=== PATIENT | male | born 1975 | race Caucasian/White ===

== ENCOUNTER 2018-04-20 11:36 | Emergency (ER) | payer OTHER, SELFPAY ==
[2018-04-20 11:47] VITALS: BP 128/68; PULSE 71; RESP 18; TEMP 36.9; O2SAT 100
--- NOTE | 2018-04-20 12:00 | DI.RAD.S_ITS ---
PROCEDURE: XR ELBOW RT MIN 3V INDICATIONS: fall off ladder TECHNIQUE: 3 views of the elbow were acquired. COMPARISON: None. FINDINGS: Bones: No displaced fractures or dislocations. No suspicious bony lesions. No significant degenerative changes are evident. Soft tissues: Evaluation for elbow joint effusion is inadequate on this examination related to suboptimal positioning of the patient's elbow. The overlying soft tissues are otherwise unremarkable. IMPRESSION: No displaced elbow fractures. Dictated by: Talha Yeager M.D. on 04/20/2018 at 11:53 Approved by: Talha Yeager M.D. on 04/20/2018 at 11:55
--- NOTE | 2018-04-20 12:00 | DI.RAD.S_ITS ---
PROCEDURE: XR PELVIS 1-2V INDICATIONS: fall off ladder TECHNIQUE: 1 view(s) of the pelvis acquired. COMPARISON: None. FINDINGS: Bones: No displaced fractures are identified involving the pelvis. Please note that only a single frontal view was obtained. No dislocations are evident. No suspicious osseous lesions are present. There mild degenerative changes of the left hip and bilateral sacroiliac joints. There also appear to be degenerative changes involving the lower lumbar spine. Soft tissues: Visualized bowel gas pattern is normal. No suspicious soft tissue calcifications. IMPRESSION: No displaced pelvic fractures are evident. If there is high clinical concern for an acute pelvic fracture, please consider CT for further evaluation. Dictated by: Talha Yeager M.D. on 04/20/2018 at 11:52 Approved by: Talha Yeager M.D. on 04/20/2018 at 11:53
--- NOTE | 2018-04-20 12:37 | DI.CT.S_ITS ---
PROCEDURE: CT HEAD/BRAIN WO CON INDICATIONS: fall off ladder TECHNIQUE: Noncontrast 4.5 mm thick angled axial sections acquired from the foramen magnum to the vertex, with coronal and sagittal reformats. For radiation dose reduction, the following was used: automated exposure control, adjustment of mA and/or kV according to patient size. COMPARISON: None. FINDINGS: Image quality: Excellent. CSF spaces: Basal cisterns are patent. No extra-axial fluid collections. Ventricles are normal in size and shape. Brain: No midline shift. No intracranial masses or hemorrhage. Malloy-white matter interface is normal. Skull and face: Calvarium and visualized facial bones are intact, without suspicious lesions. Sinuses: Visualized sinuses and mastoids are clear. IMPRESSION: Unremarkable head CT. No acute intracranial hemorrhage. Dictated by: Talha Yeager M.D. on 04/20/2018 at 11:43 Approved by: Talha Yeager M.D. on 04/20/2018 at 11:44
--- NOTE | 2018-04-20 12:37 | DI.CT.S_ITS ---
PROCEDURE: CT CERVICAL SPINE WO CON INDICATIONS: fall off ladder TECHNIQUE: Noncontrast 3 mm thick sections acquired from the skull base to the T4 level. Sagittal and coronal reformats were then constructed. For radiation dose reduction, the following was used: automated exposure control, adjustment of mA and/or kV according to patient size. COMPARISON: None. FINDINGS: Image quality: Diagnostic. Bones: The craniocervical and atlantoaxial joints are well-maintained. The odontoid is intact. The vertebral body heights and prevertebral soft tissues are within normal limits throughout the cervical spine without evidence to suggest acute compression fracture. No other fractures are evident within the cervical spine. The bone mineralization is within normal limits. No significant degenerative changes of the cervical spine are evident. Soft tissues: No prevertebral soft tissue swelling. Mild paraseptal emphysematous changes are noted within the right lung apex. No pneumothorax is evident. Imaged portions of the mediastinum are unremarkable. Otherwise, the remainder of the imaged soft tissues of the neck are within normal limits. IMPRESSION: 1. No acute fracture of the cervical spine. 2. Minimal right apical paraseptal emphysema. Dictated by: Talha Yeager M.D. on 04/20/2018 at 11:44 Approved by: Talha Yeager M.D. on 04/20/2018 at 11:47
--- NOTE | 2018-04-20 12:37 | PC.NURSE ---
Patient notes numbness to right 5th finger. Unable to extend thumb fully across palm of hand when compared to left side.
[2018-04-20 12:41] VITALS: BP 117/64; PULSE 61; RESP 14; O2SAT 99
--- NOTE | 2018-04-20 12:41 | ED_ITS ---
HPI - Fall General Chief Complaint: Trauma Stated Complaint: Fell off ladder Time Seen by Provider: 04/20/18 12:00 Source: patient Mode of arrival: ambulatory Limitations: no limitations History of Present Illness HPI Narrative: Patient is a 42-year-old male who presents after a 12 ft fall off a ladder. He said the latter was on a rug a when he fell. He mostly landed on his right side and buttock denies head injury or loss of consciousness. He has no nausea or vision changes. He is complaining mostly of right arm pain and elbow pain. He also has has some right buttock and hip pain. He has no knee pain no heel pain no back pain. He did not land on his feet mostly right buttock. A arm hit a table all while falling down words. Tetanus is up-to-date MD complaint: fall Related Data Home Medications Medication Instructions Recorded Confirmed No Known Home Medications 04/20/18 04/20/18 Allergies Allergy/AdvReac Type Severity Reaction Status Date / Time No Known Drug Allergies Allergy Verified 04/20/18 11:47 Review of Systems Review of Systems All systems reviewed & are unremarkable except as noted in HPI and below Constitutional Denies fever(s), Denies frequent falls, Denies headache(s) and Denies weakness Eyes Denies blurry vision and Denies diplopia ENT Ears, Nose, Mouth, and Throat: Denies vertigo, Denies dizziness, Denies headache (s) and Denies nasal trauma Cardiovascular Denies chest pain, Denies irregular heart rhythm, Denies lightheadedness, Denies palpitations, Denies dyspnea, Denies dyspnea on exertion and Denies orthopnea Respiratory Denies cough, Denies dyspnea, Denies dyspnea on exertion and Denies wheezing Gastrointestinal Gastrointestinal: Denies abdominal pain, Denies change in bowel habits, Denies diarrhea, Denies nausea and Denies vomiting Genitourinary Denies hematuria, Denies flank pain, Denies urinary incontinence and Denies urinary urgency Musculoskeletal Reports as per HPI, Denies back pain, Denies deformity, Denies muscle weakness, Denies numbness and Denies tingling Integumentary/Breasts Comments: Small abrasion right forearm Neurologic Denies vertigo, Denies dizziness, Denies frequent falls, Denies headache(s), Denies numbness, Denies tingling and Denies weakness Endocrine Denies palpitations Allergic/Immunologic Denies wheezing Exam Initial Vital Signs Initial Vital Signs: Vital Signs Temperature 98.5 F 04/20/18 11:47 Pulse Rate 71 04/20/18 11:47 Respiratory Rate 18 04/20/18 11:47 Blood Pressure 128/68 04/20/18 11:47 Pulse Oximetry 100 04/20/18 11:47 GENERAL: Well-appearing, well-nourished and in no acute distress. HEENT: Head normocephalic,, EOMI, pupils reactive, face symmetric, moist mucous membranes, no hemotympanum, no septal hematoma NECK: Supple, full range of motion, no step-offs, nontender on vertebrae, C- collar placed in ED CARDIOVASCULAR: Regular rate and rhythm without murmurs, rubs or gallops. RESPIRATORY: Breath sounds equal bilaterally, no wheezes rales or rhonchi. No crepitations, no subcutaneous air, chest is nontender, no signs of trauma ABDOMEN: Soft, nontender. Normoactive bowel sounds all 4 quadrants. No guarding or rebound. BACK: Nontender vertebrae, no step-offs, no contusions PELVIS: stable. EXTREMITIES: Normal range of motion, no clubbing or edema. The pelvis is stable though he does have tenderness right iliac crest. Contusion noted on right buttock. Right upper extremity: Painful supination pronation, abrasion noted on for arm no tenderness over the radial head able to flex and extend at elbow no shoulder or clavicle pain Left upper extremity: Within normal limits Right lower extremity: Within normal limits no right hip or knee pain is neurovascularly intact Left lower extremity:Within normal limits no hip pain no knee pain NEUROLOGICAL: Cranial nerves II through XII grossly intact. Normal gait and speech. SKIN: Warm, dry, no petechiae, no rashes or lesions, no contusions or ecchymosis PFSH Medical History Left rib fracture (Resolved) Social History Smoking Status: Former smoker alcohol intake: never substance use type: does not use Course Orders Ordered: ED Orders 04/20/18 12:00 XR elbow RT min 3V Stat XR pelvis 1-2V Stat 04/20/18 12:37 CT cervical spine wo con Stat CT head/brain wo con Stat Vital Signs - 8 hr 04/20/18 11:47 04/20/18 12:41 04/20/18 13:02 Temperature 98.5 F Pulse Rate 71 61 58 L Respiratory Rate 18 14 18 Blood Pressure 128/68 Blood Pressure [Right Arm] 117/64 105/61 Pulse Oximetry 100 99 100 MDM - Fall Imaging Data CT scan - head: Radiologist's impression: PROCEDURE: CT HEAD/BRAIN WO CON INDICATIONS: fall off ladder TECHNIQUE: Noncontrast 4.5 mm thick angled axial sections acquired from the foramen magnum to the vertex, with coronal and sagittal reformats. For radiation dose reduction, the following was used: automated exposure control, adjustment of mA and/or kV according to patient size. COMPARISON: None. FINDINGS: Image quality: Excellent. CSF spaces: Basal cisterns are patent. No extra-axial fluid collections. Ventricles are normal in size and shape. Brain: No midline shift. No intracranial masses or hemorrhage. Malloy-white matter interface is normal. Skull and face: Calvarium and visualized facial bones are intact, without suspicious lesions. Sinuses: Visualized sinuses and mastoids are clear. IMPRESSION: Unremarkable head CT. No acute intracranial hemorrhage. Dictated by: Talha Yeager M.D. on 04/20/2018 at 11:43 ct cervical: Radiologist's impression: PROCEDURE: CT CERVICAL SPINE WO CON INDICATIONS: fall off ladder TECHNIQUE: Noncontrast 3 mm thick sections acquired from the skull base to the T4 level. Sagittal and coronal reformats were then constructed. For radiation dose reduction, the following was used: automated exposure control, adjustment of mA and/or kV according to patient size. COMPARISON: None. FINDINGS: Image quality: Diagnostic. Bones: The craniocervical and atlantoaxial joints are well-maintained. The odontoid is intact. The vertebral body heights and prevertebral soft tissues are within normal limits throughout the cervical spine without evidence to suggest acute compression fracture. No other fractures are evident within the cervical spine. The bone mineralization is within normal limits. No significant degenerative changes of the cervical spine are evident. Soft tissues: No prevertebral soft tissue swelling. Mild paraseptal emphysematous changes are noted within the right lung apex. No pneumothorax is evident. Imaged portions of the mediastinum are unremarkable. Otherwise, the remainder of the imaged soft tissues of the neck are within normal limits. IMPRESSION: 1. No acute fracture of the cervical spine. 2. Minimal right apical paraseptal emphysema. Dictated by: Talha Yeager M.D. on 04/20/2018 at 11:44 pelvic x ray: Radiologist's impression: PROCEDURE: XR PELVIS 1-2V INDICATIONS: fall off ladder TECHNIQUE: 1 view(s) of the pelvis acquired. COMPARISON: None. FINDINGS: Bones: No displaced fractures are identified involving the pelvis. Please note that only a single frontal view was obtained. No dislocations are evident. No suspicious osseous lesions are present. There mild degenerative changes of the left hip and bilateral sacroiliac joints. There also appear to be degenerative changes involving the lower lumbar spine. Soft tissues: Visualized bowel gas pattern is normal. No suspicious soft tissue calcifications. IMPRESSION: No displaced pelvic fractures are evident. If there is high clinical concern for an acute pelvic fracture, please consider CT for further evaluation. Dictated by: Talha Yeager M.D. on 04/20/2018 at 11:52 right elbow x ray: Radiologist's impression: PROCEDURE: XR ELBOW RT MIN 3V INDICATIONS: fall off ladder TECHNIQUE: 3 views of the elbow were acquired. COMPARISON: None. FINDINGS: Bones: No displaced fractures or dislocations. No suspicious bony lesions. No significant degenerative changes are evident. Soft tissues: Evaluation for elbow joint effusion is inadequate on this examination related to suboptimal positioning of the patient's elbow. The overlying soft tissues are otherwise unremarkable. IMPRESSION: No displaced elbow fractures. Dictated by: Talha Yeager M.D. on 04/20/2018 at 11:53 Discharge Plan Departure Patient Disposition: Home Clinical Impression: Contusion of right hip, Abrasion of forearm, right Discharge Date/Time: 04/20/18 13:30 Interventions: ED Discharge Assessment Last Done: 04/20/18 13:30 Instructions: Contusion Activity Restrictions/Additional Instructions: *You have been diagnosed with contusion of right buttock and right for *What to do: Keep right arm elevated ice 20 min at a time. Expect to be sore for the next 1-2 days *Continue to take medications as directed Motrin 800 mg every 8 hr with food if needed for pain *Follow up with your primary care provider in 2-3 days *Return to ER if you should have increasing pain, numbness, tingling, weakness or any new, worsening or concerning symptoms Prescriptions: No Action No Known Home Medications RF: 0
[2018-04-20 13:02] VITALS: BP 105/61; PULSE 58; RESP 18; O2SAT 100
== END 2018-04-20 13:30 | disposition home or self-care (01) ==
PROVIDERS: Emergency Provider Emergency Medicine
DX: S70.01XA Contusion of right hip, initial encounter (principal); S50.811A Abrasion of right forearm, initial encounter; W11.XXXA Fall on and from ladder, initial encounter
CPT/HCPCS: 70450; 72125; 72170; 73080; 99283; 99284